=== PATIENT | male | born 2000 | race African-American/Black ===

== ENCOUNTER 2023-02-05 09:35 | Outpatient (CLI) | payer OTHER, SELFPAY ==
--- NOTE | ~2023-02-05 | MR_ITS ---
EXAMINATION: MR knee LT wo con DATE: 02/05/2023 10:36 INDICATION: Acute left knee pain. TECHNIQUE: Magnetic resonance imaging (MRI) of the left knee was performed without intravenous contra st. Sequences included axial PD-weighted FS FSE, coronal PD-weighted FSE and PD-weighted FS FSE, sagi ttal PD-weighted FSE, and sagittal T2-weighted FS FSE. COMPARISON: None. FINDINGS: Medial compartment: Medial meniscus is normal. Medial compartment cartilage is normal. Lateral compartment: Lateral meniscus is normal. There is a fracture of lateral tibial plateau with 7 mm depression of the articular surface, low signal fracture lines, and bone marrow edema. The femoral cartilage is normal . Patellofemoral compartment: Patellar cartilage is normal. Trochlear cartilage is normal. Ligaments and tendons: The anterior and posterior cruciate ligaments are normal. Medial collateral ligament is normal. There are changes of sprain of fibular collateral ligament characterized by thickening and increased signa l intensity proximally. There is mild patellar tendinopathy. Fluid: There is a moderate-sized knee joint effusion. There is mild prepatellar and superficial infrapatella r bursitis. IMPRESSION: 1. Lateral tibial plateau fracture with depression. 2. Moderate-sized knee joint effusion. Reviewed, dictated and finalized at location A.
== END 2023-02-05 09:36 | disposition home or self-care (01) ==
LOC: ANHIMG 09:43
PROVIDERS: PCP Orthopaedic Surgery; Visit Provider Orthopaedic Surgery
DX: M25.462 Effusion, left knee (principal)
CPT/HCPCS: 73721